=== PATIENT | male | born 1965 | race Caucasian/White ===

== ENCOUNTER 2016-09-12 06:48 | Observation (INO) | payer OTHER ==
[2016-09-12] VITALS (7 sets, daily range): BP systolic 139–180; BP diastolic 68–93; PULSE 75–98; RESP 16–20; TEMP 97–98.8; O2SAT 95–98; Ht 180.3 cm; Wt 140.6 kg
[~2016-09-12] VITALS: Ht 180.3 cm; Wt 140.6 kg
[~2016-09-12 06:48] MED LIST: DILT120C21 PO; HTN; HYDR25TA4 PO; LISI40TA4 PO; RAMI10CA27 PO
--- NOTE | 2016-09-12 06:50 | NUR ---
Placed in room 02 . Placed on environmental monitoring specialist, blood pressure machine and pulse oximeter. To gown for exam. Side rails up. Report given to RN.
[2016-09-12] MEDS ORDERED: ENALAPRILAT DIHYDRATE 1.25 MG/ML VIAL IVP ONE (07:00)
--- NOTE | 2016-09-12 07:00 | NUR ---
ER at bedside examining patient.
--- NOTE | 2016-09-12 07:05 | NUR ---
Report given to ANNA Soliz: all care endorsed.
[2016-09-12] MEDS ORDERED: GLU500 PO (07:07)
[2016-09-12] MEDS ORDERED: MORPHINE 4 MG/ML INJ. SYRINGE IVP ONE ×2 (07:18→23:30)
[2016-09-12] MEDS ORDERED: MORPHINE 4 MG/ML INJ. SYRINGE ONE (07:25)
--- NOTE | 2016-09-12 07:25 | NUR ---
# 20 gauge angiocath placed to rac. Use of asceptic technique. Opsite placed over site. Blood return noted. Blood for lab drawn from site. Flushed with 10 cc of normal saline. No evidence of infiltration noted. Patient tolerated well.
[2016-09-12 07:41] LABS: BASOPHILS % (AUTO) 0.6 % (0.0-2.0); EOSINOPHILS # (AUTO) 0.3 K/uL (0.0-0.4); HEMATOCRIT 45.8 % (36-54); HEMOGLOBIN 15.2 g/dL (14.0-18.0); LYMPHOCYTES # (AUTO) 1.8 K/uL (1.0-5.5); LYMPHOCYTES % (AUTO) 26.8 % (20.5-51.5); MEAN CORPUSCULAR HEMOGLOBIN 29 pg (27-31); MEAN CORPUSCULAR HGB CONC 33 % (32-36); MEAN CORPUSCULAR VOLUME 86 fL (79.0-98.0); MONOCYTES # (AUTO) 0.6 K/uL (0.0-1.0); MONOCYTES % (AUTO) 9.1 % (1.7-9.3); NEUTROPHILS # (AUTO) 3.9 K/uL (1.8-7.7); NEUTROPHILS % (AUTO) 58.5 % (40.0-70.0); PLATELET COUNT (AUTO) 195 K/uL (130-430); RED CELL DISTRIBUTION WIDTH 12.3 % (9.0-15.0); WHITE BLOOD COUNT (AUTO) 6.6 K/uL (4.8-10.8)
[2016-09-12 07:43] LABS: CALCIUM 8.7 mg/dL (8.4-11.0); CREATININE 1.29 mg/dL (0.55-1.30); POTASSIUM 4.4 mmol/L (3.5-5.1)
[2016-09-12 07:48] LABS: PROTHROMBIN TIME 10.4 SECS (9.5-12.5)
[2016-09-12 07:49] LABS: ALBUMIN 3.9 g/dL (3.4-4.8); TOTAL BILIRUBIN 0.4 mg/dL (0.0-1.0); TOTAL PROTEIN, SERUM 7.4 g/dL (6.4-8.3)
[2016-09-12] MEDS ORDERED: hydrochlorothiazide (08:02)
[2016-09-12] MEDS ORDERED: diltiazem (08:02)
[2016-09-12] MEDS ORDERED: metformin (08:02)
[2016-09-12] MEDS ORDERED: lisinopril (08:02)
--- NOTE | 2016-09-12 08:02 | NUR ---
Medication reconciliation partially completed with information provided by patient .pt unable to recall the dosage of medications.pharmacy not open at this time.
[2016-09-12] MEDS ORDERED: ASA (08:33)
[2016-09-12] MEDS ORDERED: ACETAMINOPHEN 325 MG TABLET PO PRN (09:30)
[2016-09-12] MEDS ORDERED: MORPHINE 2 MG/ML INJ. SYRINGE IVP PRN (09:30)
[2016-09-12] MEDS ORDERED: 0.45% NACL 1,000 ML IV ONE (09:30)
--- NOTE | 2016-09-12 09:49 | NUR ---
Patient will be admitted to [facility]. Admitted to unit TELE. Will go to room . Belongings list completed. Summary report printed. Report will be given at bedside.
--- NOTE | 2016-09-12 10:10 | NUR ---
Admission Note Received patient from ER with diagnosis of Chest Pain. Initial Plan of Care discussed-patient verbalized understanding. Family at bedside. Oriented to room, call light, pain management and safety.
--- NOTE | 2016-09-12 11:25 | NUR ---
DR JAY PAGED REGARDING VERIFICATION OF PATIENT'S LOW SODIUM AND 0.45NS ORDERS
[2016-09-12] MEDS ORDERED: ASPIRIN 81 MG TABLET(ECOTRIN) PO ONE (13:45)
[2016-09-12] MEDS ORDERED: INSULIN ASPART 100 UNITS/ML, 10 ML VIAL (NovoLOG) SUBCUT PRN (13:45)
[2016-09-12] MEDS ORDERED: GLUCOSE 15 GM GEL (in 37.5 GM TUBE) PO PRN ×2 (14:00)
[2016-09-12] MEDS ORDERED: DEXTROSE 50%-WATER 50 ML DISP.SYRIN IVP PRN ×2 (14:00)
[2016-09-12] MEDS: NACL 0.9% 1,000 ML IV SCH (14:20)
[2016-09-12] MEDS: metFORMIN HCL 500 MG TABLET PO SCH (17:45)
--- NOTE | 2016-09-12 19:45 | NUR ---
Initial Notes Pt is A/Ox4, pleasant and cooperative. No acute distress or sob noted. Breathing is even and unlabored. VSS. Pt c/o mild non-radiating chest pain 2/10 but tolerable at this time. Per pt he just had left should rotator cuff surgery and has been feeling stressed out over that. IV to RAC #20g, saline lock with no s/s of infection noted. Plan of care discussed with patient, patient verbalized understanding. Pt stated goal for tonight is sleep and hopefully be able to go home tomorrow. Safety precautions in place, side rails up x2, with bed in lowest, locked position. Pt educated on how to call nurse, and correct back demonstration noted. All needs met at this time. Call light in hand. Will continue to monitor.
--- NOTE | 2016-09-12 20:45 | NUR ---
Blood sugar Blood sugar checked, 142. No insulin coverage given per sliding scale ordered. Pt in stable condition. All needs met. Call light in hand. Will continue to monitor.
--- NOTE | 2016-09-13 00:35 | NUR ---
Rounds Pt is sleeping comfortably in bed. No acute distress or sob noted. All needs met. Call light in reach. Will continue to monitor.
[2016-09-13 00:56] VITALS: BP 119/77; PULSE 62; RESP 17; TEMP 97.1; O2SAT 98
--- NOTE | 2016-09-13 02:15 | NUR ---
PATIENT RESTING: Patient resting quietly. No acute distress noted. Vital signs within normal range. Call light in reach. Will continue to monitor.
--- NOTE | 2016-09-13 03:30 | NUR ---
Consult Called Reason For Consultation: Chest pain Person who was person notified: Jen Was consult called: yes Consulting Physician: Dr Cardona Rug Frame Mounter Specialty: Cardio Rug Frame Mounter
[2016-09-13 04:06] VITALS: BP 132/79; PULSE 70; RESP 19; TEMP 97.7; O2SAT 98
--- NOTE | 2016-09-13 04:30 | NUR ---
PATIENT RESTING: Patient resting quietly. No acute distress noted. Vital signs within normal range.
--- NOTE | 2016-09-13 06:26 | NUR ---
Closing Notes Pt in stable condition. Pt denies any chest pain or sob. Pt stating he feels much better. IV intact. VSS. All needs met throughout shift. Will endorse care to am nurse.
[2016-09-13 06:35] LABS: ALBUMIN 3.8 g/dL (3.4-4.8); CALCIUM 8.6 mg/dL (8.4-11.0); CREATININE 1.08 mg/dL (0.55-1.30); TOTAL BILIRUBIN 0.5 mg/dL (0.0-1.0); TOTAL PROTEIN, SERUM 7.3 g/dL (6.4-8.3)
[2016-09-13 06:43] LABS: BASOPHILS % (AUTO) 0.6 % (0.0-2.0); EOSINOPHILS # (AUTO) 0.4 K/uL (0.0-0.4); EOSINOPHILS % (AUTO) 5.1 % (0.0-4.0); HEMATOCRIT 44.6 % (36-54); HEMOGLOBIN 14.9 g/dL (14.0-18.0); LYMPHOCYTES # (AUTO) 2.1 K/uL (1.0-5.5); LYMPHOCYTES % (AUTO) 27.9 % (20.5-51.5); MEAN CORPUSCULAR HEMOGLOBIN 29 pg (27-31); MEAN CORPUSCULAR HGB CONC 33 % (32-36); MEAN CORPUSCULAR VOLUME 87 fL (79.0-98.0); MONOCYTES # (AUTO) 0.6 K/uL (0.0-1.0); MONOCYTES % (AUTO) 8.7 % (1.7-9.3); NEUTROPHILS # (AUTO) 4.3 K/uL (1.8-7.7); NEUTROPHILS % (AUTO) 57.7 % (40.0-70.0); PLATELET COUNT (AUTO) 191 K/uL (130-430); RED BLOOD CELL COUNT(AUTO) 5.11 MIL/uL (4.2-6.2); RED CELL DISTRIBUTION WIDTH 12.6 % (9.0-15.0); WHITE BLOOD COUNT (AUTO) 7.4 K/uL (4.8-10.8)
--- NOTE | 2016-09-13 07:53 | NUR ---
PATIENT AT REST, SR ON MONITOR. NO SIGNS OF DISTRESS NOTED. IV ON RIGHT AC, #20, SL. CALL LIGHT IN PLACE, BED LOCKED AT LOWEST POSITION, WILL CONTINUE TO MONITOR.
[2016-09-13] MEDS: metFORMIN HCL 500 MG TABLET PO SCH (08:35)
[2016-09-13] MEDS: NACL 0.9% 1,000 ML IV SCH (08:37)
[2016-09-13] MEDS ORDERED: HYDROCHLOROTHIAZIDE 25 MG TABLET (HCTZ) PO SCH (09:00)
[2016-09-13] MEDS ORDERED: ENOXAPARIN SODIUM 40 MG/0.4 ML SYRINGE SUBCUT SCH (09:00)
[2016-09-13] MEDS ORDERED: LISINOPRIL 20 MG TABLET PO SCH (09:00)
[2016-09-13] MEDS ORDERED: DILTIAZEM HCL 120 MG CAP.SR.24H PO SCH (09:00)
--- NOTE | 2016-09-13 10:00 | NUR ---
patient is seen by Dr. Jacobo. Order is given, will be carried out.
[2016-09-13 10:28] VITALS: PULSE 102; TEMP 98
[2016-09-13 12:02] VITALS: BP 129/92; PULSE 88; RESP 18; TEMP 97.4; O2SAT 92
--- NOTE | 2016-09-20 09:26 | NUR ---
Discharge Follow Up Phone Call Visual Aid Expert phoned patient, , on 09/18/16, 09/19/16, and 09/20/16 and left voicemail messages with offer of assistance and Social Service contact information. No further calls will be made; Visual Aid Expert will remain available.
== END 2016-09-13 11:15 | disposition home or self-care (01) ==
LOC: SED 06:48 → STU 09:21
PROVIDERS: ADMIT Internal Medicine; ATTEND Internal Medicine
DX: R07.89 Other chest pain (principal); E11.9 Type 2 diabetes mellitus without complications; I10 Essential (primary) hypertension; E78.5 Hyperlipidemia, unspecified; E66.9 Obesity, unspecified; F41.9 Anxiety disorder, unspecified; I07.1 Rheumatic tricuspid insufficiency; Z79.84 Long term (current) use of oral hypoglycemic drugs; Z79.899 Other long term (current) drug therapy
CPT/HCPCS: 36415 ×2; 71010; 80053 ×2; 82962 ×2; 83880; 84484 ×2; 85025 ×2; 85379; 85610; 85730; 93005; 93306; 96361 ×3; 96372; 96374; 96375; 99285; G0378 ×2; J1650; J1815; J2270; J7030 ×2

== ENCOUNTER 2017-05-27 09:01 | Emergency (ER) | payer OTHER ==
[~2017-05-27] VITALS: Ht 182.9 cm; Wt 142.9 kg
[~2017-05-27 09:01] MED LIST changes: +ASA; +GLU500 PO; -HTN; -RAMI10CA27 PO; +diltiazem; +hydrochlorothiazide; +lisinopril; +metformin
[2017-05-27 09:18] VITALS: BP_SYST 151
--- NOTE | 2017-05-27 09:18 | NUR ---
PT placed in bed 4, report endorsed to Ulises CASTILLO
--- NOTE | 2017-05-27 09:20 | NUR ---
ER at bedside examining patient.
--- NOTE | 2017-05-27 09:25 | NUR ---
Pt presents to ER c/o severe headache that began this morning while at work. Pt states that he began to sweat then headache of 7/10 started and radiated to neck. Pt reports medical history HTN & DM. Pt in no acute distress at the moment. Pt denies N/V/D/CHEST PAIN/SOB. Pt denies any pain else where. Pt AOX4, allergy to penicillin noted.
--- NOTE | 2017-05-27 09:45 | NUR ---
Patient transported to radiology via ambulatory, accompanied by rad staff.
--- NOTE | 2017-05-27 10:08 | NUR ---
Returned from radiology, back to [facility].
--- NOTE | 2017-05-27 10:10 | NUR ---
BS 129. Reported to Dr. Croft.
[2017-05-27 11:00] VITALS: BP_SYST 148
--- NOTE | 2017-05-27 11:00 | NUR ---
Patient given written and verbal discharge instructions and verbalizes understanding. ER MD discussed with patient the results and treatment provided. Patient in stable condition. ID arm band removed. Rx of TRAMADOL given. Patient educated on pain management and to follow up with PMD. Pain Scale 2. Opportunity for questions provided and answered.
--- NOTE | 2017-05-27 11:00 | NUR ---
Dr. Croft at bedside updating pt on lab and diagnostic results.
== END 2017-05-27 11:00 | disposition home or self-care (01) ==
LOC: SED 09:01
DX: G44.209 Tension-type headache, unspecified, not intractable (principal); E11.9 Type 2 diabetes mellitus without complications; K21.9 Gastro-esophageal reflux disease without esophagitis; I10 Essential (primary) hypertension; Z88.0 Allergy status to penicillin; Z79.899 Other long term (current) drug therapy
CPT/HCPCS: 70450-TC; 82962; 99284

== ENCOUNTER 2017-11-24 19:16 | Emergency (ER) | payer OTHER ==
[~2017-11-24] VITALS: Ht 182.9 cm; Wt 138.3 kg
[2017-11-24 19:30] VITALS: BP_SYST 162
[2017-11-24 19:52] LABS: BILIRUBIN,URINE NEGATIVE (NEGATIVE); BLOOD, URINE NEGATIVE (NEGATIVE); CLARITY/URINE CLEAR (CLEAR); COLOR,URINE YELLOW (YELLOW); GLUCOSE,URINE NEGATIVE (NEGATIVE); KETONES,URINE NEGATIVE (NEGATIVE); LEUKOCYTE ESTERASE ,URINE NEGATIVE (NEGATIVE); NITRITE, URINE NEGATIVE (NEGATIVE); PH,URINE 5.5 (5.0-8.0); PROTEIN URINE NEGATIVE (NEGATIVE); UROBILINOGEN,URINE 0.2 (0.2-1.0)
[2017-11-24] MEDS ORDERED: LEVOFLOXACIN 500 MG/D5W 100 ML IV ONE (20:30)
[2017-11-24 21:02] LABS: BASOPHILS # (AUTO) 0.1 K/uL (0.0-0.2); BASOPHILS % (AUTO) 1.1 % (0.0-2.0); EOSINOPHILS # (AUTO) 0.5 K/uL (0.0-0.4); EOSINOPHILS % (AUTO) 6.1 % (0.0-4.0); HEMATOCRIT 45.5 % (36-54); HEMOGLOBIN 15.5 g/dL (14.0-18.0); LYMPHOCYTES # (AUTO) 2.3 K/uL (1.0-5.5); LYMPHOCYTES % (AUTO) 28.8 % (20.5-51.5); MEAN CORPUSCULAR HEMOGLOBIN 30 pg (27-31); MEAN CORPUSCULAR HGB CONC 34 % (32-36); MEAN CORPUSCULAR VOLUME 88 fL (79.0-98.0); MONOCYTES # (AUTO) 0.8 K/uL (0.0-1.0); MONOCYTES % (AUTO) 9.7 % (1.7-9.3); NEUTROPHILS # (AUTO) 4.4 K/uL (1.8-7.7); NEUTROPHILS % (AUTO) 54.3 % (40.0-70.0); PLATELET COUNT (AUTO) 232 K/uL (130-430); RED BLOOD CELL COUNT(AUTO) 5.16 MIL/uL (4.2-6.2); RED CELL DISTRIBUTION WIDTH 12.2 % (9.0-15.0); WHITE BLOOD COUNT (AUTO) 8.1 K/uL (4.8-10.8)
[2017-11-24 21:15] LABS: CALCIUM 9.3 mg/dL (8.4-11.0); CREATININE 1.16 mg/dL (0.55-1.30); POTASSIUM 3.9 mmol/L (3.5-5.1)
[2017-11-24 21:20] LABS: TOTAL BILIRUBIN 0.4 mg/dL (0.0-1.0)
[2017-11-24 22:40] VITALS: BP_SYST 151
== END 2017-11-24 22:40 | disposition home or self-care (01) ==
LOC: SED 19:16
DX: A09 Infectious gastroenteritis and colitis, unspecified (principal); I10 Essential (primary) hypertension; K21.9 Gastro-esophageal reflux disease without esophagitis; Z86.79 Personal history of other diseases of the circulatory system; Z88.0 Allergy status to penicillin; Z79.899 Other long term (current) drug therapy
CPT/HCPCS: 36415; 74176; 80053; 81003; 85025; 87040; 96365; 99285; J1956

== ENCOUNTER 2018-03-17 16:08 | Emergency (ER) | payer OTHER ==
[~2018-03-17] VITALS: Ht 182.9 cm; Wt 136.1 kg
[2018-03-17 16:19] VITALS: BP_SYST 175
[2018-03-17] MEDS ORDERED: KETOROLAC TROMETHAMINE 30 MG VIAL IM ONE (17:30)
[2018-03-17 18:23] VITALS: BP_SYST 139
== END 2018-03-17 18:23 | disposition home or self-care (01) ==
LOC: SED 16:08
DX: M25.511 Pain in right shoulder (principal); R03.0 Elevated blood-pressure reading, without diagnosis of hypertension; K21.9 Gastro-esophageal reflux disease without esophagitis; E11.9 Type 2 diabetes mellitus without complications; I10 Essential (primary) hypertension; Z86.79 Personal history of other diseases of the circulatory system; Z88.0 Allergy status to penicillin; Z79.899 Other long term (current) drug therapy
CPT/HCPCS: 73030; 96372; 99284; J1885

== ENCOUNTER 2018-12-22 14:13 | Emergency (ER) | payer OTHER ==
[~2018-12-22] VITALS: Ht 182.9 cm; Wt 138.3 kg
[2018-12-22 14:36] VITALS: BP_SYST 146
--- NOTE | 2018-12-22 16:50 | NUR ---
ER LORENA Palmer examining patient.
--- NOTE | 2018-12-22 16:55 | NUR ---
Patient to ER [facility] to [facility] for evaluation. Side rails up. Report given to Christianne CASTILLO.
--- NOTE | 2018-12-22 17:00 | NUR ---
PT AAOx4 ambulated into ED c/o intermittent migraine headache x 1 week. Denies n/v/d/sob/cp. Pt reports he is not taking any medication for headache. No other injuries/complaints per pt/noted. Will continue to monitor.
--- NOTE | 2018-12-22 17:30 | NUR ---
Accucheck 141. Estela CARRILLO aware.
[2018-12-22] MEDS ORDERED: NACL 0.9% 1,000 ML IV ONE (18:00)
[2018-12-22] MEDS ORDERED: KETOROLAC TROMETHAMINE 30 MG VIAL IVP ONE (18:00)
[2018-12-22 19:03] VITALS: BP_SYST 140
--- NOTE | 2018-12-22 19:04 | NUR ---
Patient given written and verbal discharge instructions and verbalizes understanding. ER CONTINUITY DIRECTOR Estela discussed with patient the results and treatment provided. Patient in stable condition. ID arm band removed. Rx of Tylenol given. Patient educated on pain management and to follow up with PMD. Pain Scale 0. Opportunity for questions provided and answered. Medication side effect fact sheet provided.
== END 2018-12-22 19:03 | disposition home or self-care (01) ==
LOC: SED 14:13
DX: G44.209 Tension-type headache, unspecified, not intractable (principal); I10 Essential (primary) hypertension; E78.5 Hyperlipidemia, unspecified; E11.9 Type 2 diabetes mellitus without complications; K21.9 Gastro-esophageal reflux disease without esophagitis; Z88.0 Allergy status to penicillin; Z79.84 Long term (current) use of oral hypoglycemic drugs; Z79.899 Other long term (current) drug therapy
CPT/HCPCS: 70450; 82962; 96374; 99284; J1885; J7030

== ENCOUNTER 2019-01-12 11:13 | Emergency (ER) | payer OTHER ==
[~2019-01-12] VITALS: Ht 182.9 cm; Wt 138.3 kg
[2019-01-12 11:26] VITALS: BP_SYST 157
--- NOTE | 2019-01-12 11:29 | NUR ---
Patient to ER bed 06 to gown for evaluation. Side rails up.
--- NOTE | 2019-01-12 11:34 | NUR ---
Patient presented to ER with Headache pain x1 week. Patient A&Ox4, afebrile, ambulatory to ER, denies N/V/D, pain 8/10, skin pink. Patient states he has had headach pain with right side head/neck pain 8/10for 1 week. Patient states he was seen in [facility] ER 2 weeks ago for same symptoms, Head CT was Negative per patient. Patient state he had relief from headache pain x1 week post ER vist. Patient states he has Diabetes and HTN in health hx
--- NOTE | 2019-01-12 11:36 | NUR ---
ER Dr. Monahan at bedside examining patient.
[2019-01-12] MEDS ORDERED: NACL 0.9% 1,000 ML IV ONE (11:40)
[2019-01-12] MEDS ORDERED: METOCLOPRAMIDE HCL 10 MG/2 ML VIAL IVP ONE (11:45)
[2019-01-12] MEDS ORDERED: KETOROLAC TROMETHAMINE 30 MG VIAL IVP ONE (11:45)
[2019-01-12 12:00] LABS: BASOPHILS # (AUTO) 0.1 K/uL (0.0-0.2); EOSINOPHILS # (AUTO) 0.2 K/uL (0.0-0.4); EOSINOPHILS % (AUTO) 3.5 % (0.0-4.0); HEMATOCRIT 42.4 % (36-54); HEMOGLOBIN 14.6 g/dL (14.0-18.0); LYMPHOCYTES # (AUTO) 1.8 K/uL (1.0-5.5); LYMPHOCYTES % (AUTO) 26.7 % (20.5-51.5); MEAN CORPUSCULAR HEMOGLOBIN 31 pg (27-31); MEAN CORPUSCULAR HGB CONC 34 % (32-36); MEAN CORPUSCULAR VOLUME 89 fL (79.0-98.0); MONOCYTES # (AUTO) 0.7 K/uL (0.0-1.0); MONOCYTES % (AUTO) 9.8 % (1.7-9.3); PLATELET COUNT (AUTO) 221 K/uL (130-430); RED BLOOD CELL COUNT(AUTO) 4.77 MIL/uL (4.2-6.2); RED CELL DISTRIBUTION WIDTH 13.3 % (9.0-15.0); WHITE BLOOD COUNT (AUTO) 6.8 K/uL (4.8-10.8)
[2019-01-12 12:12] LABS: CALCIUM 8.9 mg/dL (8.4-11.0); CREATININE 1.24 mg/dL (0.55-1.30); POTASSIUM 4.2 mmol/L (3.5-5.1)
[2019-01-12 12:18] LABS: ALBUMIN 3.9 g/dL (3.4-4.8); TOTAL BILIRUBIN 0.2 mg/dL (0.0-1.0)
[2019-01-12 12:54] VITALS: BP_SYST 127
--- NOTE | 2019-01-12 12:55 | NUR ---
Patient given written and verbal discharge instructions and verbalizes understanding. ER MD discussed with patient the results and treatment provided. Patient in stable condition. ID arm band removed. IV catheter removed intact and dressing applied, no active bleeding. Rx of Robaxin adn Ibuprofen given. Patient educated on pain management and to follow up with PMD. Pain Scale 0/10 . Opportunity for questions provided and answered. Medication side effect fact sheet provided.
== END 2019-01-12 12:54 | disposition home or self-care (01) ==
LOC: SED 11:13
DX: G44.209 Tension-type headache, unspecified, not intractable (principal); E11.9 Type 2 diabetes mellitus without complications; I10 Essential (primary) hypertension; Z79.84 Long term (current) use of oral hypoglycemic drugs; Z79.899 Other long term (current) drug therapy; Z88.0 Allergy status to penicillin
CPT/HCPCS: 36415; 80053; 82962; 85025; 96374; 96375; 99283; J1885; J2765; J7030

== ENCOUNTER 2019-04-11 16:59 | Emergency (ER) | payer OTHER ==
[~2019-04-11] VITALS: Ht 182.9 cm; Wt 136.1 kg
--- NOTE | 2019-04-11 17:05 | NUR ---
Patient to ER bed 2 to gown for evaluation. Side rails up. Report given to ALFREDO CASTILLO.
--- NOTE | 2019-04-11 17:05 | NUR ---
MD Su at bedside assessing pt.
[2019-04-11 17:08] VITALS: BP_SYST 166
[2019-04-11] MEDS ORDERED: ASPIRIN 81 MG TAB.CHEW PO ONE (17:15)
--- NOTE | 2019-04-11 17:15 | NUR ---
IV access into the left ac in one attempt with 22g. Blood drawn for labs at same time. pt is stable and stated he felt like he was having a Anxiety or and panic attack earlier.
[2019-04-11 17:40] LABS: BASOPHILS # (AUTO) 0.1 K/uL (0.0-0.2); EOSINOPHILS # (AUTO) 0.6 K/uL (0.0-0.4); EOSINOPHILS % (AUTO) 6.5 % (0.0-4.0); HEMOGLOBIN 14.6 g/dL (14.0-18.0); LYMPHOCYTES # (AUTO) 3.3 K/uL (1.0-5.5); LYMPHOCYTES % (AUTO) 35.4 % (20.5-51.5); MEAN CORPUSCULAR HEMOGLOBIN 31 pg (27-31); MEAN CORPUSCULAR HGB CONC 35 % (32-36); MEAN CORPUSCULAR VOLUME 89 fL (79.0-98.0); MONOCYTES # (AUTO) 1.2 K/uL (0.0-1.0); MONOCYTES % (AUTO) 13.4 % (1.7-9.3); NEUTROPHILS % (AUTO) 43.7 % (40.0-70.0); PLATELET COUNT (AUTO) 218 K/uL (130-430); RED BLOOD CELL COUNT(AUTO) 4.72 MIL/uL (4.2-6.2); RED CELL DISTRIBUTION WIDTH 12.8 % (9.0-15.0); WHITE BLOOD COUNT (AUTO) 9.2 K/uL (4.8-10.8)
[2019-04-11 17:47] LABS: CREATININE 1.14 mg/dL (0.55-1.30); POTASSIUM 3.9 mmol/L (3.5-5.1)
[2019-04-11 17:53] LABS: ALBUMIN 4.5 g/dL (3.4-4.8); TOTAL BILIRUBIN 0.3 mg/dL (0.0-1.0)
[2019-04-11 18:33] VITALS: BP_SYST 147
--- NOTE | 2019-04-11 18:34 | NUR ---
pt stated he feels much better and wants to go home. IV catheter removed intact no bleeding.
--- NOTE | 2019-04-11 18:35 | NUR ---
Patient given written and verbal discharge instructions and verbalizes understanding. ER MD discussed with patient the results and treatment provided. Patient in stable condition. ID arm band removed. IV catheter removed intact and dressing applied, no active bleeding. Rx of asa given. Patient educated on pain management and to follow up with PMD. Pain Scale 0/10. Opportunity for questions provided and answered. Medication side effect fact sheet provided.
== END 2019-04-11 18:35 | disposition home or self-care (01) ==
LOC: SED 16:59
DX: R07.89 Other chest pain (principal); E11.9 Type 2 diabetes mellitus without complications; I10 Essential (primary) hypertension; K21.9 Gastro-esophageal reflux disease without esophagitis; Z88.0 Allergy status to penicillin; Z79.899 Other long term (current) drug therapy
CPT/HCPCS: 36415; 71045; 80053; 83880; 84484; 85025; 85379; 85610-TC; 85730-TC; 93005; 99284

== ENCOUNTER 2019-04-12 07:01 | Emergency (ER) | payer OTHER ==
[~2019-04-12] VITALS: Ht 182.9 cm; Wt 136.1 kg
[2019-04-12 07:04] VITALS: BP_SYST 150
--- NOTE | 2019-04-12 07:23 | NUR ---
Placed in room 03 . Placed on security monitor, blood pressure machine and pulse oximeter. To gown for exam. Side rails up.
--- NOTE | 2019-04-12 07:43 | NUR ---
X-ray at bedside.
--- NOTE | 2019-04-12 07:45 | NUR ---
pt arrives from home w/ c/o CP 09/26/ Pt was seen in our ER yesterday and dc'd home, however, the CP has not resolved.
--- NOTE | 2019-04-12 07:49 | NUR ---
ER at bedside examining patient.
[2019-04-12] MEDS ORDERED: KETOROLAC TROMETHAMINE 60 MG/2 ML VIAL IM ONE (08:00)
[2019-04-12 08:06] LABS: BASOPHILS # (AUTO) 0.1 K/uL (0.0-0.2); EOSINOPHILS # (AUTO) 0.2 K/uL (0.0-0.4); EOSINOPHILS % (AUTO) 2.4 % (0.0-4.0); HEMATOCRIT 41.9 % (36-54); HEMOGLOBIN 14.6 g/dL (14.0-18.0); LYMPHOCYTES # (AUTO) 1.4 K/uL (1.0-5.5); LYMPHOCYTES % (AUTO) 19.5 % (20.5-51.5); MEAN CORPUSCULAR HEMOGLOBIN 31 pg (27-31); MEAN CORPUSCULAR HGB CONC 35 % (32-36); MEAN CORPUSCULAR VOLUME 89 fL (79.0-98.0); MONOCYTES # (AUTO) 0.7 K/uL (0.0-1.0); MONOCYTES % (AUTO) 10.5 % (1.7-9.3); NEUTROPHILS # (AUTO) 4.8 K/uL (1.8-7.7); NEUTROPHILS % (AUTO) 66.6 % (40.0-70.0); PLATELET COUNT (AUTO) 218 K/uL (130-430); RED BLOOD CELL COUNT(AUTO) 4.71 MIL/uL (4.2-6.2); RED CELL DISTRIBUTION WIDTH 12.6 % (9.0-15.0); WHITE BLOOD COUNT (AUTO) 7.2 K/uL (4.8-10.8)
--- NOTE | 2019-04-12 08:15 | NUR ---
Note undone in EDM - 04/12/19 at 1612 by NEIL Patient given written and verbal discharge instructions and verbalizes understanding. ER discussed with patient the results and treatment provided. Patient in stable condition. ID arm band removed. . Patient educated on pain management and to follow up with PMD. Pain Scale 0/10. Opportunity for questions provided and answered. Medication side effect fact sheet provided.
--- NOTE | 2019-04-12 08:16 | NUR ---
med icated the pt w/ Toradol. Will reassess
[2019-04-12 08:20] LABS: CALCIUM 8.6 mg/dL (8.4-11.0); CREATININE 1.12 mg/dL (0.55-1.30); POTASSIUM 4.4 mmol/L (3.5-5.1)
[2019-04-12 08:26] LABS: ALBUMIN 4.2 g/dL (3.4-4.8); TOTAL BILIRUBIN 0.3 mg/dL (0.0-1.0)
--- NOTE | 2019-04-12 08:30 | NUR ---
Patient given written and verbal discharge instructions and verbalizes understanding. ER MD discussed with patient the results and treatment provided. Patient in stable condition. ID arm band removed. Patient educated on pain management and to follow up with PMD. Pain Scale 0/10. Opportunity for questions provided and answered. Medication side effect fact sheet provided.
[2019-04-12 08:32] VITALS: BP_SYST 150
== END 2019-04-12 08:30 | disposition home or self-care (01) ==
LOC: SED 07:01
DX: R07.89 Other chest pain (principal); E11.9 Type 2 diabetes mellitus without complications; I10 Essential (primary) hypertension; K21.9 Gastro-esophageal reflux disease without esophagitis; I63.9 Cerebral infarction, unspecified; Z88.0 Allergy status to penicillin; Z79.899 Other long term (current) drug therapy
CPT/HCPCS: 36415; 71045; 80053; 82550; 83880; 84484; 85025; 85379; 93005; 96372; 99284; J1885

== ENCOUNTER 2019-04-26 14:20 | Emergency (ER) | payer OTHER ==
[~2019-04-26] VITALS: Ht 182.9 cm; Wt 136.1 kg
[2019-04-26 14:25] VITALS: BP_SYST 171
--- NOTE | 2019-04-26 14:25 | NUR ---
Placed in room 8 . Placed on potline monitor, blood pressure machine and pulse oximeter. To gown for exam. Side rails up. Assumed care.
--- NOTE | 2019-04-26 14:30 | NUR ---
Patient arrived via POV, AAOx4, and ambulatory with steady gait. Patient c/c of chest pain in epigastric region near sternum radiates to left side. Previously seen here 2 weeks ago regarding same complaint. Given [place] and Aspirin per patient, he has been taking it with limited relief from [place]. Patient states he has a slight cough. Pain is worse with spicy food and soda. Patient calm and cooperative. Placed on compliance monitor. Will continue to follow up and monitor.
--- NOTE | 2019-04-26 14:32 | NUR ---
Another patient on continuous 12-lead EKG, called RT Abrams for EKG.
--- NOTE | 2019-04-26 14:37 | NUR ---
# 18 gauge angiocath placed to LAC. Use of asceptic technique. Opsite placed over site. Blood return noted. Blood for lab drawn from site. Flushed with 10 cc of normal saline. No evidence of infiltration noted. Patient tolerated well.
--- NOTE | 2019-04-26 14:40 | NUR ---
DREW Mclean at bedside examining patient.
[2019-04-26] MEDS ORDERED: MAG HYDROX/AL HYDROX/SIMETH 30 ML, DICYCLOMINE HCL 20 MG, LIDOCAINE VISCOUS 2% 15ML (PO... PO ONE ×3 (14:45)
[2019-04-26 15:06] LABS: BASOPHILS # (AUTO) 0.1 K/uL (0.0-0.2); BASOPHILS % (AUTO) 0.7 % (0.0-2.0); EOSINOPHILS # (AUTO) 0.4 K/uL (0.0-0.4); EOSINOPHILS % (AUTO) 4.5 % (0.0-4.0); HEMATOCRIT 43.5 % (36-54); LYMPHOCYTES # (AUTO) 2.2 K/uL (1.0-5.5); LYMPHOCYTES % (AUTO) 26.1 % (20.5-51.5); MEAN CORPUSCULAR HEMOGLOBIN 31 pg (27-31); MEAN CORPUSCULAR HGB CONC 34 % (32-36); MEAN CORPUSCULAR VOLUME 89 fL (79.0-98.0); MONOCYTES # (AUTO) 0.9 K/uL (0.0-1.0); MONOCYTES % (AUTO) 10.5 % (1.7-9.3); NEUTROPHILS % (AUTO) 58.2 % (40.0-70.0); PLATELET COUNT (AUTO) 236 K/uL (130-430); RED CELL DISTRIBUTION WIDTH 12.8 % (9.0-15.0); WHITE BLOOD COUNT (AUTO) 8.6 K/uL (4.8-10.8)
[2019-04-26 15:07] LABS: ANION GAP 8 (5-15); CHLORIDE 100 mmol/L (98-107); GLUCOSE 121 mg/dL (70-99); POTASSIUM 3.9 mmol/L (3.5-5.1); SODIUM SERUM 133 mmol/L (136-145); UREA NITROGEN, BLOOD 16 mg/dL (8-21)
[2019-04-26 15:16] LABS: ALANINE AMINOTRANSFERASE 39 U/L (12-78); ALBUMIN 4.3 g/dL (3.4-4.8); ASPARTATE AMINOTRANSFERASE 22 U/L (10-37); TOTAL BILIRUBIN 0.4 mg/dL (0.0-1.0)
[2019-04-26 15:32] LABS: GFR AFRICAN AMERICAN 89 mL/min (>90)
--- NOTE | 2019-04-26 15:35 | NUR ---
Patient report given to ANNA Camacho.
--- NOTE | 2019-04-26 15:39 | NUR ---
[place] of care received at this time, pt resting, VSS
[2019-04-26 15:55] LABS: BILIRUBIN,URINE NEGATIVE (NEGATIVE); BLOOD, URINE NEGATIVE (NEGATIVE); CLARITY/URINE CLEAR (CLEAR); COLOR,URINE YELLOW (YELLOW); GLUCOSE,URINE NEGATIVE (NEGATIVE); KETONES,URINE NEGATIVE (NEGATIVE); LEUKOCYTE ESTERASE ,URINE NEGATIVE (NEGATIVE); NITRITE, URINE NEGATIVE (NEGATIVE); PROTEIN URINE NEGATIVE (NEGATIVE); UROBILINOGEN,URINE 0.2 (0.2-1.0)
[2019-04-26] MEDS ORDERED: hydrALAZINE HCL 20 MG/ML VIAL IVP ONE (16:00)
[2019-04-26] MEDS ORDERED: PANTOPRAZOLE SODIUM 40 MG/VIAL (PROTONIX) IVP ONE (16:00)
[2019-04-26] MEDS ORDERED: cloNIDine HCL 0.1 MG TABLET PO ONE (16:30)
[2019-04-26 17:46] VITALS: BP_SYST 141
--- NOTE | 2019-04-26 17:46 | NUR ---
Patient given written and verbal discharge instructions and verbalizes understanding. ER MD discussed with patient the results and treatment provided. Patient in stable condition. ID arm band removed. IV catheter removed intact and dressing applied, no active bleeding. Rx of Prilosec given. Patient educated on pain management and to follow up with PMD. Pain Scale 2/10 tolerable for pt . Opportunity for questions provided and answered. Medication side effect fact sheet provided.
== END 2019-04-26 17:46 | disposition home or self-care (01) ==
LOC: SED 14:20
DX: K29.70 Gastritis, unspecified, without bleeding (principal); R07.9 Chest pain, unspecified; I10 Essential (primary) hypertension; E11.9 Type 2 diabetes mellitus without complications; K21.9 Gastro-esophageal reflux disease without esophagitis; Z88.0 Allergy status to penicillin; Z79.84 Long term (current) use of oral hypoglycemic drugs; Z79.899 Other long term (current) drug therapy
CPT/HCPCS: 36415; 71045; 80053; 81003; 84484; 85025; 93005; 96374; 96375; 99284

== ENCOUNTER 2019-04-28 09:14 | Inpatient (IN) | payer OTHER ==
[~2019-04-28] VITALS: Ht 182.9 cm; Wt 136.1 kg
[2019-04-28] MEDS ORDERED: NITROGLYCERIN 1 INCH (GM) OINT. TP ONE (09:30)
[2019-04-28 10:12] LABS: CALCIUM 8.6 mg/dL (8.4-11.0); CREATININE 1.14 mg/dL (0.55-1.30)
[2019-04-28 10:17] LABS: ALBUMIN 4.1 g/dL (3.4-4.8); PROTHROMBIN TIME 9.9 SECS (9.5-12.5); TOTAL BILIRUBIN 0.6 mg/dL (0.0-1.0)
[2019-04-28 10:19] LABS: BASOPHILS # (AUTO) 0.1 K/uL (0.0-0.2); BASOPHILS % (AUTO) 0.8 % (0.0-2.0); EOSINOPHILS # (AUTO) 0.2 K/uL (0.0-0.4); EOSINOPHILS % (AUTO) 2.4 % (0.0-4.0); HEMATOCRIT 42.2 % (36-54); HEMOGLOBIN 14.4 g/dL (14.0-18.0); LYMPHOCYTES # (AUTO) 1.5 K/uL (1.0-5.5); MEAN CORPUSCULAR HEMOGLOBIN 31 pg (27-31); MEAN CORPUSCULAR HGB CONC 34 % (32-36); MEAN CORPUSCULAR VOLUME 89 fL (79.0-98.0); MONOCYTES # (AUTO) 0.7 K/uL (0.0-1.0); MONOCYTES % (AUTO) 9.1 % (1.7-9.3); NEUTROPHILS # (AUTO) 5.2 K/uL (1.8-7.7); NEUTROPHILS % (AUTO) 67.7 % (40.0-70.0); PLATELET COUNT (AUTO) 216 K/uL (130-430); RED BLOOD CELL COUNT(AUTO) 4.74 MIL/uL (4.2-6.2); RED CELL DISTRIBUTION WIDTH 12.8 % (9.0-15.0); WHITE BLOOD COUNT (AUTO) 7.7 K/uL (4.8-10.8)
[2019-04-28] MEDS ORDERED: DIPHENHYDRAMINE INJ 50 MG/ML VIAL IVP ONE (11:45)
[2019-04-28] MEDS ORDERED: MORPHINE 4 MG/ML INJ. SYRINGE IVP ONE (11:45)
[2019-04-28] MEDS ORDERED: INSULIN REGULAR, HUMAN 100 UNITS/ML, 10 ML VIAL (humuLIN R) SUBCUT PRN (15:15)
[2019-04-28] MEDS ORDERED: DEXTROSE 50% JECT 50 ML DISP.SYRIN IVP PRN (15:15)
[2019-04-28] MEDS ORDERED: ASPIRIN 325 MG TABLET (ECOTRIN) PO ONE (15:15)
[2019-04-28 17:06] LABS: BILIRUBIN,URINE NEGATIVE (NEGATIVE); BLOOD, URINE NEGATIVE (NEGATIVE); CLARITY/URINE CLEAR (CLEAR); COLOR,URINE YELLOW (YELLOW); GLUCOSE,URINE NEGATIVE (NEGATIVE); KETONES,URINE NEGATIVE (NEGATIVE); LEUKOCYTE ESTERASE ,URINE NEGATIVE (NEGATIVE); NITRITE, URINE NEGATIVE (NEGATIVE); PROTEIN URINE NEGATIVE (NEGATIVE); UROBILINOGEN,URINE 0.2 (0.2-1.0)
[2019-04-28 17:48] VITALS: BP_SYST 134
[2019-04-28] MEDS: metFORMIN HCL 500 MG TABLET PO SCH (18:00)
[2019-04-28] MEDS ORDERED: MORPHINE 2 MG/ML INJ. SYRINGE IVP PRN (19:45)
[2019-04-28 19:52] VITALS: BP_SYST 134
[2019-04-29 01:55] VITALS: BP_SYST 131
[2019-04-29 08:51] VITALS: BP_SYST 129
[2019-04-29] MEDS ORDERED: LISINOPRIL 20 MG TABLET PO SCH (09:00)
[2019-04-29] MEDS ORDERED: ASPIRIN 325 MG TABLET (ECOTRIN) PO SCH (09:00)
[2019-04-29] MEDS ORDERED: HYDROCHLOROTHIAZIDE 25 MG TABLET (HCTZ) PO SCH (09:00)
[2019-04-29] MEDS ORDERED: DILTIAZEM HCL 120 MG CAP.SR.24H PO SCH (09:00)
[2019-04-29] MEDS: metFORMIN HCL 500 MG TABLET PO SCH (09:30)
[2019-04-29 12:43] LABS: CHOLESTEROL 127 mg/dL (<200); HDL CHOLESTEROL 36 mg/dL (>45); LDL CHOLESTEROL 76 mg/dL (<100); TRIGLYCERIDES 124 mg/dL (30-150)
[2019-04-29 12:54] VITALS: BP_SYST 126
[2019-04-29] MEDS ORDERED: OMEP20TA20 PO (16:56)
[2019-04-29 17:03] VITALS: BP_SYST 113
[2019-04-29 17:12] VITALS: BP_SYST 113
== END 2019-04-29 17:35 | disposition home or self-care (01) | DRG 313 ==
LOC: SED 09:14 → STU 13:13
PROVIDERS: ADMIT Internal Medicine Hospice and Palliative Medicine; ATTEND Internal Medicine Hospice and Palliative Medicine
DX: R07.89 Other chest pain (principal); Z68.41 Body mass index [BMI] 40.0-44.9, adult; E11.9 Type 2 diabetes mellitus without complications; E78.00 Pure hypercholesterolemia, unspecified; F41.9 Anxiety disorder, unspecified; I10 Essential (primary) hypertension; E66.9 Obesity, unspecified; Z79.899 Other long term (current) drug therapy; Z88.0 Allergy status to penicillin
CPT/HCPCS: 36415; 71045; 80053; 80061; 81003; 82962; 83880; 84484; 85025; 85610-TC; 93005; 93017; 93306; 96374; 96375; 99285; G0378; J1200; J1815; J2270

== ENCOUNTER 2019-05-29 18:31 | Emergency (ER) | payer OTHER ==
[~2019-05-29] VITALS: Ht 182.9 cm; Wt 129.3 kg
[~2019-05-29 18:31] MED LIST changes: +OMEP20TA20 PO
[2019-05-29 18:36] VITALS: BP_SYST 161
[2019-05-29 19:26] LABS: BASOPHILS % (AUTO) 0.4 % (0.0-2.0); EOSINOPHILS # (AUTO) 0.3 K/uL (0.0-0.4); EOSINOPHILS % (AUTO) 3.4 % (0.0-4.0); HEMATOCRIT 41.4 % (36-54); HEMOGLOBIN 14.3 g/dL (14.0-18.0); LYMPHOCYTES # (AUTO) 2.7 K/uL (1.0-5.5); MEAN CORPUSCULAR HEMOGLOBIN 30 pg (27-31); MEAN CORPUSCULAR HGB CONC 35 % (32-36); MEAN CORPUSCULAR VOLUME 88 fL (79.0-98.0); MONOCYTES # (AUTO) 1.2 K/uL (0.0-1.0); MONOCYTES % (AUTO) 14.7 % (1.7-9.3); NEUTROPHILS % (AUTO) 48.5 % (40.0-70.0); PLATELET COUNT (AUTO) 229 K/uL (130-430); RED BLOOD CELL COUNT(AUTO) 4.72 MIL/uL (4.2-6.2); WHITE BLOOD COUNT (AUTO) 8.3 K/uL (4.8-10.8)
[2019-05-29 19:34] LABS: CALCIUM 8.5 mg/dL (8.4-11.0); CREATININE 1.14 mg/dL (0.55-1.30); POTASSIUM 3.6 mmol/L (3.5-5.1)
[2019-05-29 19:40] LABS: ALBUMIN 3.9 g/dL (3.4-4.8); TOTAL BILIRUBIN 0.4 mg/dL (0.0-1.0)
[2019-05-29 20:42] LABS: BILIRUBIN,URINE NEGATIVE (NEGATIVE); BLOOD, URINE NEGATIVE (NEGATIVE); CLARITY/URINE CLEAR (CLEAR); COLOR,URINE YELLOW (YELLOW); GLUCOSE,URINE NEGATIVE (NEGATIVE); KETONES,URINE NEGATIVE (NEGATIVE); LEUKOCYTE ESTERASE ,URINE NEGATIVE (NEGATIVE); NITRITE, URINE NEGATIVE (NEGATIVE); PROTEIN URINE NEGATIVE (NEGATIVE); UROBILINOGEN,URINE 0.2 (0.2-1.0)
[2019-05-29] MEDS ORDERED: MAG HYDROX/AL HYDROX/SIMETH 30 ML, LIDOCAINE VISCOUS 2% 15ML (PO) 10 ML, DICYCLOMINE HC... PO ONE ×3 (22:30)
[2019-05-29] MEDS ORDERED: ONDANSETRON HCL 4 MG/2 ML VIAL IVP ONE (23:15)
[2019-05-29] MEDS ORDERED: NACL 0.9% 1,000 ML IV ONE (23:15)
[2019-05-29 23:39] VITALS: BP_SYST 113
== END 2019-05-29 23:39 | disposition home or self-care (01) ==
LOC: SED 18:31
DX: K29.70 Gastritis, unspecified, without bleeding (principal); E11.9 Type 2 diabetes mellitus without complications; K21.9 Gastro-esophageal reflux disease without esophagitis; I10 Essential (primary) hypertension; Z90.49 Acquired absence of other specified parts of digestive tract; Z88.0 Allergy status to penicillin; Z79.899 Other long term (current) drug therapy
CPT/HCPCS: 36415; 74176; 80053; 81003; 83690; 85025; 85610; 85730; 99284; J2001

== ENCOUNTER 2019-05-30 07:43 | Emergency (ER) | payer OTHER ==
[~2019-05-30] VITALS: Ht 180.3 cm; Wt 129.3 kg
[2019-05-30 07:51] VITALS: BP_SYST 159
[2019-05-30 09:10] VITALS: BP_SYST 155
== END 2019-05-30 09:10 | disposition home or self-care (01) ==
LOC: SED 07:43
DX: E11.65 Type 2 diabetes mellitus with hyperglycemia (principal); R10.31 Right lower quadrant pain; E78.5 Hyperlipidemia, unspecified; I10 Essential (primary) hypertension; K21.9 Gastro-esophageal reflux disease without esophagitis; Z88.0 Allergy status to penicillin; Z79.84 Long term (current) use of oral hypoglycemic drugs; Z79.899 Other long term (current) drug therapy
CPT/HCPCS: 99283

== ENCOUNTER 2019-07-18 12:04 | Emergency (ER) | payer OTHER ==
[~2019-07-18] VITALS: Ht 180.3 cm; Wt 117.9 kg
[2019-07-18 12:20] VITALS: BP_SYST 150
[2019-07-18] MEDS ORDERED: ASPIRIN 81 MG TAB.CHEW PO ONE (13:00)
[2019-07-18] MEDS ORDERED: NITROGLYCERIN 1 INCH (GM) OINT. TP ONE (13:00)
[2019-07-18 13:18] LABS: BASOPHILS # (AUTO) 0.1 K/uL (0.0-0.2); BASOPHILS % (AUTO) 0.9 % (0.0-2.0); EOSINOPHILS # (AUTO) 0.2 K/uL (0.0-0.4); EOSINOPHILS % (AUTO) 2.8 % (0.0-4.0); HEMATOCRIT 39.6 % (36-54); HEMOGLOBIN 13.1 g/dL (14.0-18.0); LYMPHOCYTES # (AUTO) 1.8 K/uL (1.0-5.5); LYMPHOCYTES % (AUTO) 26.4 % (20.5-51.5); MEAN CORPUSCULAR HEMOGLOBIN 30 pg (27-31); MEAN CORPUSCULAR HGB CONC 33 % (32-36); MEAN CORPUSCULAR VOLUME 90 fL (79.0-98.0); MONOCYTES # (AUTO) 0.6 K/uL (0.0-1.0); NEUTROPHILS # (AUTO) 4.1 K/uL (1.8-7.7); NEUTROPHILS % (AUTO) 60.9 % (40.0-70.0); PLATELET COUNT (AUTO) 233 K/uL (130-430); RED BLOOD CELL COUNT(AUTO) 4.39 MIL/uL (4.2-6.2); RED CELL DISTRIBUTION WIDTH 13.5 % (9.0-15.0); WHITE BLOOD COUNT (AUTO) 6.7 K/uL (4.8-10.8)
[2019-07-18 13:32] LABS: CALCIUM 8.8 mg/dL (8.4-11.0); CREATININE 1.15 mg/dL (0.55-1.30); POTASSIUM 4.3 mmol/L (3.5-5.1)
[2019-07-18 13:36] LABS: PROTHROMBIN TIME 9.9 SECS (9.5-12.5)
[2019-07-18 13:38] LABS: ALBUMIN 3.6 g/dL (3.4-4.8); TOTAL BILIRUBIN 0.4 mg/dL (0.0-1.0)
[2019-07-18 14:09] LABS: BILIRUBIN,URINE NEGATIVE (NEGATIVE); BLOOD, URINE NEGATIVE (NEGATIVE); CLARITY/URINE CLEAR (CLEAR); COLOR,URINE YELLOW (YELLOW); GLUCOSE,URINE NEGATIVE (NEGATIVE); KETONES,URINE NEGATIVE (NEGATIVE); LEUKOCYTE ESTERASE ,URINE NEGATIVE (NEGATIVE); NITRITE, URINE NEGATIVE (NEGATIVE); PH,URINE 5.5 (5.0-8.0); PROTEIN URINE NEGATIVE (NEGATIVE); UROBILINOGEN,URINE 0.2 (0.2-1.0)
[2019-07-18 14:27] VITALS: BP_SYST 116
== END 2019-07-18 14:29 | disposition left against medical advice (07) ==
LOC: SED 12:04
DX: I20.9 Angina pectoris, unspecified (principal); I10 Essential (primary) hypertension; K21.9 Gastro-esophageal reflux disease without esophagitis; E11.9 Type 2 diabetes mellitus without complications; E78.00 Pure hypercholesterolemia, unspecified; Z86.73 Personal history of transient ischemic attack (TIA), and cerebral infarction without residual deficits; Z79.899 Other long term (current) drug therapy; Z88.0 Allergy status to penicillin
CPT/HCPCS: 36415; 71045; 80053; 81003; 83880; 84484; 85025; 85610-TC; 93005; 99285

== ENCOUNTER 2019-07-20 14:21 | Emergency (ER) | payer OTHER ==
[~2019-07-20] VITALS: Ht 180.3 cm; Wt 117.9 kg
[2019-07-20 14:28] VITALS: BP_SYST 137
--- NOTE | 2019-07-20 14:32 | NUR ---
Patient triaged and placed in waiting room. VSS and patient appears in no acute distress at this time. Awaiting available bed, and MD notified of need for MSE.
[2019-07-20 17:58] VITALS: BP_SYST 130
--- NOTE | 2019-07-20 19:24 | NUR ---
Patient left without being seen.
== END 2019-07-20 19:24 | disposition left against medical advice (07) ==
LOC: SED 14:21
DX: R07.89 Other chest pain (principal); R78.1 Finding of opiate drug in blood; Z53.21 Procedure and treatment not carried out due to patient leaving prior to being seen by health care provider